=== PATIENT | male | born 1990 ===

== ENCOUNTER 2025-09-30 10:03 | Emergency (ER) | payer OTHER ==
[2025-09-30] MEDS ORDERED: Dexamethasone 10 MG/ML VIAL ONE (10:38)
[2025-09-30] MEDS ORDERED: Acetaminophen 325 MG (10.15 ML) UDCUP ONE (10:38)
== END 2025-09-30 12:20 | disposition home or self-care (01) ==
LOC: ERS 10:03
DX: J02.9 Acute pharyngitis, unspecified (principal)
CPT/HCPCS: 87081; 87430; 99282; J1100